=== PATIENT | female | born 1950 | race Caucasian/White ===

== ENCOUNTER 2019-09-03 06:52 | Outpatient (CLI) | payer OTHER ==
[~2019-09-03] VITALS: Ht 154.9 cm; Wt 99.8 kg
[2019-09-03] VITALS (8 sets, daily range): BP systolic 108–174; BP diastolic 52–85
[2019-09-03] MEDS ORDERED: ALBU2.5V5 NEB (07:22)
[2019-09-03] MEDS ORDERED: ERGO500027 PO (07:22)
[2019-09-03] MEDS ORDERED: HYDR-2759 PO (07:22)
[2019-09-03] MEDS ORDERED: METF500T11 PO (07:22)
[2019-09-03] MEDS ORDERED: CHOL2000 PO (07:22)
[2019-09-03] MEDS ORDERED: PHEN37.598 PO (07:22)
[2019-09-03] MEDS ORDERED: FURO-68 PO (07:22)
[2019-09-03] MEDS ORDERED: MELO15TA6 PO (07:22)
[2019-09-03] MEDS ORDERED: LOSA100T14 PO (07:22)
[2019-09-03] MEDS ORDERED: PANT20TA2 PO (07:22)
[2019-09-03] MEDS ORDERED: OXYB10TA2 PO (07:22)
[2019-09-03] MEDS ORDERED: DULO60CA6 PO (07:22)
[2019-09-03 07:27] LABS: HEMATOCRIT 38.5 % (36.0-47.0); HEMOGLOBIN 12.9 g/dL (12.0-15.5); RED BLOOD COUNT 4.31 x10^6/uL (3.50-5.40)
[2019-09-03 07:35] LABS: PROTHROMBIN TIME PATIENT 12.4 SEC (11.7-14.0)
[2019-09-03] MEDS ORDERED: HEPARIN for ARTERIAL LINE 1,500 ML ONE (07:36)
[2019-09-03] MEDS ORDERED: IODIXANOL 320 MG/ML 100 ML VIAL. ONE (07:36)
[2019-09-03] MEDS ORDERED: LIDOCAINE 1% Multi-Dose 20 ML VIAL. ONE ×2 (07:36→09:06)
[2019-09-03 07:38] LABS: CALCIUM 9.5 mg/dL (8.5-10.1); CREATININE 0.8 mg/dL (0.6-1.0); GFR 70.7; POTASSIUM 4.5 mmol/L (3.5-5.1)
[2019-09-03] MEDS ORDERED: fentaNYL PF VIAL 100 MCG/2 ML VIAL ONE ×2 (08:21→09:04)
[2019-09-03] MEDS ORDERED: VERAPAMIL 5 MG/2 ML VIAL. ONE (08:22)
[2019-09-03] MEDS ORDERED: MIDAZOLAM HCL/PF 2 MG/2 ML VIAL. ONE ×2 (08:22→09:04)
[2019-09-03] MEDS ORDERED: NITROGLYCERIN 200 MCG/2 ML SYRINGE FOR CATH/VASC LAB. ONE ×2 (08:22→08:26)
[2019-09-03] MEDS ORDERED: HEPARIN for IV BOLUS 10,000 UNIT/10 ML VIAL. ONE (08:22)
[2019-09-03] MEDS ORDERED: IODIXANOL 320 MG/ML 100 ML VIAL. IART ONE (09:30)
[2019-09-03] MEDS ORDERED: LIDOCAINE 1% Multi-Dose 20 ML VIAL. INJ ONE (09:30)
[2019-09-03] MEDS ORDERED: fentaNYL PF VIAL 100 MCG/2 ML VIAL IV ONE (09:30)
[2019-09-03] MEDS ORDERED: MIDAZOLAM HCL/PF 2 MG/2 ML VIAL. IV ONE (09:30)
[2019-09-03] MEDS ORDERED: HEPARIN for IV BOLUS 10,000 UNIT/10 ML VIAL. IV ONE (09:45)
[2019-09-03] MEDS ORDERED: NITROGLYCERIN SUBLINGUAL 0.4 MG BOTTLE OF 25. SL PRN (12:15)
[2019-09-03] MEDS ORDERED: 0.9 % SODIUM CHLORIDE 10 ML DISP.SYRIN. IV PRN (12:15)
--- NOTE | 2019-09-03 12:30 | NUR ---
Discharge Note: [facility] Discharge instructions and discharge home medications reviewed with Patient and a copy given. All questions have been answered and understanding verbalized. The following instructions and handouts were given: moderate sedation, groin site, and incision care Discontinued lines and drains: Peripheral IV intact. Patient discharged to Home or Self Care withFamily Membera Wheelchair
--- NOTE | 2019-09-07 11:24 | CARD ---
MR#: [id number] Date of Study: 09/03/2019 Ordering Physician: CONNER NEAL, Referring Physician: CONNER NEAL, Tech: VANDANA CHERRY RTR APPROVED REPORT Technologist: VANDANA CHERRY RTR Nurse: RUY OWEN RN Procedure(s) performed: MODERATE SEDATION TIME: 73 MIN FLUORO TIME: 7.4 MIN DOSE: 64.9 GYCM2 CONTRAST: 59CC RHC, Coronary angiography, Aortic valve study, LHC HISTORY The patient is a 69 year-old female with a history of : hypertension, dyslipidemia. INDICATION The indication(s) include : unstable angina , dyspnea, valvular heart disease. [facility] Clinical Frailty Scale [facility] Clinical Frailty Scale: Managing Well Heart Failure Heart Failure: Yes If Yes, Newly Diagnosed: Yes If Yes, HF Type: Diastolic If Yes, NYHA Class: Class II PROCEDURE NARRATIVE The patient was brought electively to the cardiac catheterization lab. A timeout was performed confi rming the patient's name, date of , procedure, and site of procedure. All necessary personnel w ere wearing the appropriate protective equipment and radiation monitor devices. After explaining the risks and benefits of the procedure and alternatives, informed consent was obtained. (See nursing no liana for medications administered). The right groin was sterilely prepped and draped in the usual fas hion. The right groin was infiltrated with 20 mL of 2% lidocaine for subcutaneous anesthesia. A 6 F sheath was inserted into the right femoral artery without difficulty via the modified seldinger techn ique with an 18G needle and a J-tipped guidewire. Next, an 5Fr sheath was inserted in the right inter nal jugular vein in similar fashion without difficulty. A PA catheter was then advanced through the right heart chambers, pressures and saturations were obta ined. Subsequently, right and left coronary angiography was performed using standard JR4 and JL4 diag nostic catheters. Left ventricular end diastolic pressure was obtained with a dual lumen pigtail cat heter and pullback was performed. HEMODYNAMICS: LVEDP 12 mm Hg AO: 150/80 *No gradient on LV to aortic pullback. PCWP: 10 mm Hg PA: 40/20/25 RV: 40/10/10 RA: 9 mm Hg Domenico: 4.1 L/min, CI 2.1 L/min/m2 PA saturation: 71.4% FA saturation: 95% LEFT VENTRICULOGRAM: Deferred due to known normal EF. CORONARY ANGIOGRAPHY: LM is a large caliber vessel with normal angiographic appearance. LAD is a large caliber vessel with normal angiographic appearance. D1 is a small caliber vessels with normal angiographic apeparance. LCx is a moderate caliber non-dominant vessel with mild luminal irregularities. OM1 is a moderate caliber vessel with normal angiographic appearance. RCA is a large caliber dominant vessel with normal angiographic appearance. AORTIC VALVE STUDY: MG 25 mm Hg MALIK 0.84 cm2 CLOSURE: The right groin access site was closed using an angioseal device w/o any complications. Complications: None. Conclusion 1. Mildly elevated right sided filling pressures. 2. Mild pulmonary HTN. mPA 25 mm Hg 3. No significant coronary disease 4. Moderate to severe aortic stenosis (Possible low flow, low gradient severe ) Recommendations 1. Etiology of dyspnea is likely multifactorial including obesity, KRISTIN and with mild cor pulmonale . Will plan for aggressive weight loss and risk factor modification, if no significant improvement, t hen consider TAVR evaluation. Signed by : Conner Neal, Electronically Approved : 09/03/2019 11:44:23
== END 2019-09-03 12:35 | disposition home or self-care (01) ==
LOC: CCL 06:52
PROVIDERS: ATTEND Internal Medicine Cardiovascular Disease
DX: I20.0 Unstable angina (principal); I27.20 Pulmonary hypertension, unspecified; I35.0 Nonrheumatic aortic (valve) stenosis; Z79.01 Long term (current) use of anticoagulants
CPT/HCPCS: 36415; 80048; 85027; 85610; 93460; 99152; 99153; C1760; C1769; C1773; C1887; C1892; J1644; J2250; J3010; Q9967; G0269; C1771